=== PATIENT | female | born 1985 ===

== ENCOUNTER 2017-03-03 11:27 | Emergency (ER) | payer MEDICAID, OTHER ==
[2017-03-03 11:27] VITALS: BMI 20.3
[2017-03-03 11:30] VITALS: BP 109/77; PULSE 107; RESP 18; TEMP 97.4; O2SAT 98
--- NOTE | 2017-03-03 12:03 | C.PDOC ---
Time Seen by Provider: 03/03/17 11:43 Chief Complaint (Nursing): Lower Extremity Problem/Injury History Per: Patient Onset/Duration Of Symptoms: Days (chronic), Waxing/Waning Current Symptoms Are (Timing): Still Present Quality: "Pain" Severity: Moderate Associated Symptoms: Ankle/Leg Swelling (left) Additional History Per: Prior Records Past Medical History Reviewed: Historical Data, Nursing Documentation, Vital Signs Vital Signs: Last Vital Signs Temp 97.4 F L 03/03/17 11:30 Pulse 107 H 03/03/17 11:30 Resp 18 03/03/17 11:30 BP 109/77 03/03/17 11:30 Pulse Ox 98 03/03/17 11:30 - Medical History PMH: Arthritis, Asthma, Rheumatoid Arthritis - [facility] Procedures DETOXIFICATION SERVICES FOR SUBSTANCE ABUSE TREATMENT (10/01/16) INJECT/INFUSE NEC (07/09/14) NEBULIZER THERAPY (07/09/14) Family History: States: Unknown Family Hx - Social History Hx Tobacco Use: Yes Hx Alcohol Use: Yes Hx Substance Use: Yes (recovering Heroin addict) - Immunization History Hx Tetanus Toxoid Vaccination: Yes Hx Influenza Vaccination: No Hx Pneumococcal Vaccination: No Review Of Systems Except As Marked, All Systems Reviewed And Found Negative. Constitutional: Negative for: Fever, Weakness Cardiovascular: Negative for: Chest Pain Respiratory: Negative for: Shortness of Breath, Hemoptysis Gastrointestinal: Negative for: Vomiting, Abdominal Pain Musculoskeletal: Positive for: Other (Left ankle pain, chronic). Negative for: Neck Pain, Back Pain Neurological: Negative for: Weakness, Numbness, Seizures, Altered Mental Status Physical Exam - Physical Exam Appears: Non-toxic, No Acute Distress Skin: Normal Color, Warm, Dry Head: Atraumatic, Normacephalic Eye(s): bilateral: Normal Inspection, PERRL, EOMI Neck: Normal ROM, Supple Cardiovascular: Rhythm Regular Respiratory: Normal Breath Sounds, No Accessory Muscle Use Gastrointestinal/Abdominal: Soft, No Tenderness Back: No CVA Tenderness, No Vertebral Tenderness Extremity: Normal ROM, Tenderness (around left ankle area), Pedal Edema (left), No Calf Tenderness, Capillary Refill (wnl) Pulses: Left Dorsalis Pedis: Normal Neurological/Psych: Oriented x3, Normal Motor, Normal Sensation ED Course And Treatment O2 Sat by Pulse Oximetry: 98 Pulse Ox Interpretation: Normal Disposition Counseled Patient/Family Regarding: Diagnosis, Need For Followup, Rx Given - Disposition Referrals: Lionel Hyde MD [Staff Provider] - Disposition: HOME/ ROUTINE Disposition Time: 12:05 Condition: STABLE Additional Instructions: Follow up with your doctor for further evaluation and treatment. Return to the ER if you develop redness, fever, worsening of symptoms or if you have any other concerns. Prescriptions: Acetaminophen [Tylenol 325mg tab] 2 tab PO QID PRN #30 tab PRN Reason: Pain, Moderate (4-7) Pantoprazole Sodium [Protonix] 40 mg PO DAILY #14 ect predniSONE [predniSONE Tab] 2 tab PO DAILY #8 tab Instructions: Chronic Pain (ED) Forms: [facility] (Khmer) - Clinical Impression Clinical Impression: Chronic pain of left ankle
== END 2017-03-03 12:26 | disposition home or self-care (01) ==
LOC: C.ER 11:27
DX: M25.572 Pain in left ankle and joints of left foot (principal); G89.29 Other chronic pain

== ENCOUNTER 2017-03-30 00:50 | Emergency (ER) | payer MEDICAID ==
[2017-03-30 00:50] VITALS: BMI 20.3
[2017-03-30 00:55] VITALS: TEMP 97.4; O2SAT 100
--- NOTE | 2017-03-30 01:25 | C.PDOC ---
History Of Present Illness 32 year old female with a Hx of rheumatoid arthritis who presents to the ER with a complaint of left ankle pain for the past 2 days. Patient reports Hx of similar pain in the past; denies weakness or numbness of the left foot. Patient' s PMD is Dr. Méndez, last visit was approximately 3 months ago. Time Seen by Provider: 03/30/17 01:17 Chief Complaint (Nursing): Lower Extremity Problem/Injury History Per: Patient History/Exam Limitations: no limitations Onset/Duration Of Symptoms: Days Current Symptoms Are (Timing): Still Present Recent travel outside of the [place]: No Past Medical History Reviewed: Historical Data, Nursing Documentation, Vital Signs Vital Signs: Last Vital Signs Temp 97.4 F L 03/30/17 00:53 Pulse 70 03/30/17 02:58 Resp 17 03/30/17 02:58 BP 117/63 03/30/17 02:58 Pulse Ox 100 03/30/17 02:58 - Medical History PMH: Arthritis, Asthma, Rheumatoid Arthritis Surgical History: No Surg Hx - [facility] Procedures DETOXIFICATION SERVICES FOR SUBSTANCE ABUSE TREATMENT (10/01/16) INJECT/INFUSE NEC (07/09/14) NEBULIZER THERAPY (07/09/14) Family History: States: Unknown Family Hx - Social History Hx Tobacco Use: Yes Hx Alcohol Use: No Hx Substance Use: No - Immunization History Hx Tetanus Toxoid Vaccination: No Hx Influenza Vaccination: No Hx Pneumococcal Vaccination: No Review Of Systems Musculoskeletal: Positive for: Foot Pain Neurological: Negative for: Weakness, Numbness Physical Exam - Physical Exam Appears: Non-toxic, No Acute Distress Skin: Normal Color, Warm, Dry Head: Atraumatic, Normacephalic Extremity: Tenderness (On palpation to left ankle), No Deformity, Swelling ( Left ankle), No Other (Erythema) Pulses: Left Dorsalis Pedis: Normal, Right Dorsalis Pedis: Normal Neurological/Psych: Oriented x3, Normal Speech, Normal Cognition, Normal Motor, Normal Sensation ED Course And Treatment O2 Sat by Pulse Oximetry: 100 (Room air) Pulse Ox Interpretation: Normal Progress Note: Decadron and toradol administered. On reevaluation, patient's pain has improved, will discharge home with Rx and instruct to follow up with PMD. Disposition - Disposition Referrals: Jovany Méndez MD [Staff Provider] - Disposition: HOME/ ROUTINE Disposition Time: 02:48 Condition: STABLE Additional Instructions: Follow up with your PMD within 1-2 days. Return to Ed if feel worse. Prescriptions: Naproxen [Naprosyn] 1 tab PO BID PRN #25 tab PRN Reason: Pain Famotidine [Pepcid] 20 mg PO BID #20 tab oxyCODONE/Acetaminophen [Percocet 5/325 mg Tab] 1 tab PO QID PRN #14 tab PRN Reason: Pain predniSONE [predniSONE Tab] 2 tab PO DAILY #8 tab Instructions: Rheumatoid Arthritis (ED) Forms: [employer] (Austrian) - Clinical Impression Clinical Impression: Chronic pain of left ankle - Scribe Statement The provider has reviewed the documentation as recorded by the Scribkerry Vincent All medical record entries made by the Michealibkerry were at my direction and personally dictated by me. I have reviewed the chart and agree that the record accurately reflects my personal performance of the history, physical exam, medical decision making, and the department course for this patient. I have also personally directed, reviewed, and agree with the discharge instructions and disposition.
[2017-03-30] MEDS ORDERED: Dexamethasone 4 mg/1 ml IM STA (01:42)
[2017-03-30] MEDS ORDERED: Dexamethasone 4 mg/1 ml ONE (01:46)
[2017-03-30 03:01] VITALS: BP 117/63; PULSE 70; RESP 17
== END 2017-03-30 02:57 | disposition home or self-care (01) ==
LOC: C.ER 00:50
DX: G89.29 Other chronic pain (principal); M25.572 Pain in left ankle and joints of left foot
CPT/HCPCS: 96372; 99284; J1100; J1885

== ENCOUNTER 2017-07-19 16:14 | Emergency (ER) | payer MEDICAID, OTHER ==
[2017-07-19 16:14] VITALS: BMI 20.3
[2017-07-19 16:19] VITALS: BP 119/82; RESP 18; TEMP 98.4; O2SAT 98
--- NOTE | 2017-07-19 16:36 | C.PDOC ---
History Of Present Illness Carli Shaikh is a 32 y/o female who presents to the ER requesting detox s/p substance abuse. States she has been sniffing heroin and using crack. She offers no other physical complaints. Time Seen by Provider: 07/19/17 16:23 Chief Complaint (Nursing): Substance Abuse History Per: Patient History/Exam Limitations: no limitations Current Symptoms Are (Timing): Still Present Modifying Factor(s): Narcotics, Crack Past Medical History Reviewed: Historical Data, Nursing Documentation, Vital Signs Vital Signs: Last Vital Signs Temp 98.4 F 07/19/17 16:44 Pulse 99 H 07/19/17 16:44 Resp 18 07/19/17 16:44 BP 119/82 07/19/17 16:44 Pulse Ox 98 07/19/17 20:21 - Medical History PMH: Arthritis, Asthma, Rheumatoid Arthritis Denies: HIV, HTN, Seizures, Sexually Transmitted Disease - [facility] Procedures DETOXIFICATION SERVICES FOR SUBSTANCE ABUSE TREATMENT (10/01/16) INJECT/INFUSE NEC (07/09/14) NEBULIZER THERAPY (07/09/14) Family History: States: Unknown Family Hx - Social History Hx Tobacco Use: Yes Hx Alcohol Use: No Hx Substance Use: Yes (heroin and crack) - Immunization History Hx Tetanus Toxoid Vaccination: No Hx Influenza Vaccination: No Hx Pneumococcal Vaccination: No Review Of Systems Constitutional: Negative for: Fever, Other (pain) Psych: Positive for: Other (substance use) Physical Exam - Physical Exam Appears: Non-toxic, No Acute Distress Skin: Normal Color, Warm, Dry Head: Atraumatic, Normacephalic Eye(s): bilateral: Normal Inspection, PERRL, EOMI Neck: Normal ROM, Supple Cardiovascular: Rhythm Regular Respiratory: Normal Breath Sounds, No Accessory Muscle Use, No Wheezing Gastrointestinal/Abdominal: Soft, No Tenderness, No Distention Extremity: Normal ROM, No Tenderness Neurological/Psych: Oriented x3, Normal Speech, Normal Cognition ED Course And Treatment O2 Sat by Pulse Oximetry: 98 (Ra) Pulse Ox Interpretation: Normal Medical Decision Making Medical Decision Making: Impression: 32 y/o requesting detox Discussed case w/ relay worker. No detox beds available. Patient is medically stable. Will d/c with information regarding detox programs. Disposition Counseled Patient/Family Regarding: Need For Followup - Disposition Disposition: HOME/ ROUTINE Disposition Time: 16:35 Condition: STABLE Additional Instructions: Please contact detox programs on sheet given to you to find soonest program available. Return to ER for any worsening symptoms. Instructions: Opioid Dependence (ED) Forms: [facility] ([place] Islander), General Discharge Instructions - Clinical Impression Clinical Impression: Drug dependence - PA / EMBALMER APPRENTICE / Resident Statement MD/DO has reviewed & agrees with the documentation as recorded. - Scribe Statement The provider has reviewed the documentation as recorded by the Scribe (Jackie Puente) All medical record entries made by the Scribe were at my direction and personally dictated by me. I have reviewed the chart and agree that the record accurately reflects my personal performance of the history, physical exam, medical decision making, and the department course for this patient. I have also personally directed, reviewed, and agree with the discharge instructions and disposition.
[2017-07-19 16:56] VITALS: PULSE 99
== END 2017-07-19 16:44 | disposition home or self-care (01) ==
LOC: C.ER 16:14
DX: F19.20 Other psychoactive substance dependence, uncomplicated (principal)

== ENCOUNTER 2017-07-20 14:03 | Inpatient (IN) | payer MEDICAID ==
[2017-07-20 14:03] VITALS: BMI 20.3
[2017-07-20 15:00] LABS: BASO # 0.1 K/uL (0.0-0.2); BASO % 0.5 % (0.0-2.0); EOS # 0.2 K/uL (0.0-0.7); EOS % 1.4 % (0.0-4.0); HEMATOCRIT 42.5 % (34.0-47.0); LYMPH # 1.7 K/uL (1.0-4.3); LYMPH % 14.2 % (20.0-40.0); MEAN CELL VOLUME 92.6 fL (81.0-99.0); MEAN CORPUSCULAR HGB CONC 33.5 g/dL (33.0-37.0); MEAN PLATELET VOLUME 9.2 fL (7.2-11.7); MONO # 0.8 K/uL (0.0-0.8); MONO % 6.5 % (0.0-10.0); RED CELL DISTRIBUTION WIDTH 13.6 % (11.5-14.5)
[2017-07-20 15:26] LABS: ALCOHOL SERUM < 10 mg/dl (0-10); ALKALINE PHOSPHATASE 73 U/L (38-126); ALT/SGPT 41 U/L (9-52); AST/SGOT 17 U/L (14-36); BILIRUBIN,TOTAL 0.3 mg/dL (0.2-1.3); BLOOD UREA NITROGEN 14 mg/dL (7-17); CALCIUM 8.4 mg/dl (8.6-10.4); CARBON DIOXIDE 29 mmol/L (22-30); CHLORIDE 106 mmol/L (98-107); GFR AFRICAN-AMERICAN > 60; GLUCOSE,RANDOM 129 mg/dL (65-105); SODIUM 139 mmol/L (132-148); TOTAL PROTEIN 7.6 g/dL (6.3-8.3)
[2017-07-20 15:52] LABS: RBC URINE 34 /hpf (0-3); URINE BILIRUBIN NEGATIVE (NEGATIVE); URINE BLOOD 3+ (NEGATIVE); URINE COLOR Yellow (YELLOW); URINE GLUCOSE (UA) NORMAL (Normal); URINE KETONE NEGATIVE (NEGATIVE); URINE PROTEIN NEGATIVE (NEGATIVE); URINE UROBILINOGEN NORMAL mg/dL (0.2-1.0); WBC URINE 15 /hpf (0-5)
[2017-07-20 15:53] LABS: POTASSIUM 3.8 mmol/L (3.6-5.2)
[2017-07-20 15:53] LABS: URINE LEUKOCYTE ESTERASE 1+ Leu/uL (Negative)
--- NOTE | 2017-07-20 16:02 | C.PDOC ---
History Of Present Illness 32yo female, pre-cleared for detox for heroin, cocaine and alcohol abuse. Patient states she last used heroin and cocaine early this morning. She states last alcohol use was 2 days ago. She has no medical complaints. Time Seen by Provider: 07/20/17 15:06 Chief Complaint (Nursing): Substance Abuse History Per: Patient History/Exam Limitations: no limitations Onset/Duration Of Symptoms: Hrs Current Symptoms Are (Timing): Still Present Past Medical History Reviewed: Historical Data, Nursing Documentation, Vital Signs Vital Signs: Last Vital Signs Temp 98.6 F 07/20/17 17:49 Pulse 78 07/20/17 17:49 Resp 18 07/20/17 17:49 BP 112/72 07/20/17 17:49 Pulse Ox 99 07/20/17 17:49 - Medical History PMH: Arthritis, Asthma, Depression, Rheumatoid Arthritis Denies: HIV, HTN, Seizures, Sexually Transmitted Disease Surgical History: No Surg Hx - [facility] Procedures DETOXIFICATION SERVICES FOR SUBSTANCE ABUSE TREATMENT (10/01/16) INJECT/INFUSE NEC (07/09/14) NEBULIZER THERAPY (07/09/14) Family History: States: Unknown Family Hx - Social History Hx Tobacco Use: Yes Hx Alcohol Use: No Hx Substance Use: Yes (heroin and crack) - Immunization History Hx Tetanus Toxoid Vaccination: No Hx Influenza Vaccination: No Hx Pneumococcal Vaccination: No Review Of Systems Except As Marked, All Systems Reviewed And Found Negative. Cardiovascular: Negative for: Chest Pain Respiratory: Negative for: Shortness of Breath Physical Exam - Physical Exam Appears: No Acute Distress Skin: Normal Color Head: Atraumatic, Normacephalic Eye(s): bilateral: Normal Inspection Neck: Supple Cardiovascular: Rhythm Regular Respiratory: Normal Breath Sounds Gastrointestinal/Abdominal: Soft, No Tenderness Extremity: Normal ROM, No Deformity Neurological/Psych: Oriented x3, Normal Speech, Normal Cognition ED Course And Treatment - Laboratory Results Result Diagrams: 07/20/17 14:57 07/20/17 14:57 O2 Sat by Pulse Oximetry: 98 (RA) Pulse Ox Interpretation: Normal Disposition - Disposition Disposition Time: 16:30 Condition: STABLE Forms: [employer] [facility] (Algerian) - Clinical Impression Clinical Impression: Drug abuse - Scribe Statement The provider has reviewed the documentation as recorded by the Marisela Hernandez Provider Attestation: All medical record entries made by the Scribe were at my direction and personally dictated by me. I have reviewed the chart and agree that the record accurately reflects my personal performance of the history, physical exam, medical decision making, and the department course for this patient. I have also personally directed, reviewed, and agree with the discharge instructions and disposition.
--- NOTE | 2017-07-20 18:59 | PCM.BM ---
<LaurelKandace - Last Filed: 07/20/17 19:50> Treatment Plan Problems - Problems identified on initial assessmt Potential for opiate withdrawal Date Initiated: 07/20/17 Time Initiated: 18:58 Assessment reference: NA Status: Active Priority: 1 Potential for alcohol withdrawal Date Initiated: 07/20/17 Time Initiated: 19:50 Assessment reference: NA Status: Active Priority: 2 Treatment assets and liabiliti Patient Assests: ADL independent, negotiates basic needs, cognitively intact Patient Liabilities: substance abuse, other (homeless) - Milieu Protocol Maintain good personal hygiene: daily Encourage regular showers, daily Remind patient to perform daily oral care, daily Assist patient to perform ADL's Conduct patient checks and document Observation sheet: Q15 minutes Maintain personal safety: every shift Educate patient to report safety concerns to staff, every shift Monitor environment for contraband/sharps Medication safety: Monitor for expected outcome, potential side effects: every shift, Assess barriers to learning: every shift, Assess readiness for medication education: every shift <Yissel De La Vega - Last Filed: 07/21/17 13:17> - Diagnosis (1) Opioid use disorder, severe, dependence Status: Acute Interventions: 07/21/17 13:17 * Assess 7x/week regarding severity of withdrawal * Educate regarding risks, benefits, side effects and alternatives of medications * Use Motivational Interviewing for abstinence * Use CBT for relapse prevention * Medication management for withdrawal symptoms * Encourage medication assisted treatment * (2) Alcohol abuse Status: Acute Interventions: 07/21/17 13:17 * Assess 7x/week regarding severity of withdrawal * Educate regarding risks, benefits, side effects and alternatives of medications * Use Motivational Interviewing for abstinence * Use CBT for relapse prevention * Medication management for withdrawal symptoms * Encourage medication assisted treatment * <Carli Gray - Last Filed: 07/22/17 10:12> Family Contact Family involvement: Famliy/SO not involved Family contact: Patient agrees to contact - Goals for Treatment Patient goals for treatment: Complete detox and apply for [facility]. Discharge/Continuing Care - Education Needs Education Needs: Patient Medication, Patient Diagnosis/Disease Process, Patient Coping Skills, Patient Anger Management skills, Patient Placement options, Patient Community resources - Discharge Discharge Criteria: No longer exhibiting s/s of withdrawal, Reduction of target symptoms Discharge to:: Substance Abuse Rehab - Treatment Team Participation Patient/Family/SO Statement: 07/22/17 10:11 "I gotta do rehab. My family needs me to do this..." Discussed with Family/SO: No Was Patient/Family/SO present at Treatment Team Meeting: Yes
[2017-07-20] MEDS ORDERED: Buprenorphine Hydrochloride 2 mg SL ONE ×2 (19:45→21:26)
[2017-07-21] MEDS: Multiple Vitamins Tab PO SCH (09:53)
[2017-07-21] MEDS: Buprenorphine Hydrochloride 2 mg SL SCH (10:17)
--- NOTE | 2017-07-21 15:26 | PCM.PSYCH ---
Initial Psychiatric Evaluation - Initial Psychiatric Evaluation Chief Complaint (in patient's own words): " I need help"---> Heroin detox History of Present Illness and Precipitating Events: The patient is seen, chart reviewed and case discussed. 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 She uses 12-15 bags of heroin intranasally daily for about 2 years. She started smoking crack for the past 1.5 months She drinks a pint of vodka daily for the past 2 months She smokes 10 cigarettes daily Her first detox was in October 2016. No rehabs or MMTP/SBX Drinks socially, denies all drugs She states that she buys Xanax off the street Past psych hx: Depression and anxiety Family psych hx: Uncle uses heroin Medical hx: RA and asthma Current Medications: Active Medications Generic Name Dose Route Start Last Admin Trade Name Freq PRN Reason Stop Dose Admin Albuterol 1 puff 07/21/17 16:00 Ventolin Hfa 90 Mcg/Actuation (8 G) INH RQ4 PRN Shortness of Breath Buprenorphine HCl 8 mg 07/21/17 10:00 07/21/17 10:17 Subutex SL 07/25/17 09:59 8 mg DAILY LIZET Administration Taper Chlordiazepoxide 25 mg 07/20/17 22:15 07/21/17 12:25 Librium PO 07/25/17 19:41 25 mg Q4H LIZET Administration Taper Chlordiazepoxide 25 mg 07/21/17 09:49 07/21/17 10:02 Librium PO 25 mg Q4H PRN Administration Alcohol Withdrawal Clonidine HCl 0.1 mg 07/20/17 18:59 Catapres PO Q8 PRN COWS Score More or Equal to 5 Folic Acid 1 mg 07/21/17 10:00 07/21/17 09:53 Folic Acid PO 1 mg DAILY LIZET Administration Gabapentin 300 mg 07/21/17 10:15 07/21/17 10:18 Neurontin PO 300 mg BID LIZET Administration Ibuprofen 400 mg 07/20/17 19:00 Motrin Tab PO Q6H PRN Pain, moderate (4-7) Loperamide HCl 2 mg 12/18/17 18:59 Imodium PO Q8 PRN Diarrhea Multivitamins 1 tab 07/21/17 10:00 07/21/17 09:53 Hexavitamin PO 1 tab DAILY LIZET Administration Ondansetron HCl 4 mg 07/20/17 18:59 Zofran Tab PO Q8 PRN Nausea/Vomiting Thiamine HCl 100 mg 07/21/17 10:00 07/21/17 09:53 Vitamin B1 Tab PO 100 mg DAILY LIZET Administration Trazodone HCl 50 mg 07/20/17 19:42 07/20/17 21:02 Desyrel PO 50 mg HS PRN Administration Insomnia Past Psychiatric History - Past Psychiatric History Pertinent Medical Hx (Current Medical&Sleep Prob, Allergies): Allergies Allergy/AdvReac Type Severity Reaction Status Date / Time No Known Allergies Allergy Verified 07/20/17 14:16 No Known Home Med 07/19/17 Review of Systems - Neurological Neurological: UNREMARKABLE - Psychiatric Psychiatric: Anxiety, Depression. absent: Auditory Hallucinations, Irritability , Paranoia, Visual Hallucinations, Tactile Hallucinations Mental Status Examination - Affect Affect: Depressed - Motor Activity Motor Activity: Calm - Reliability in Providing Information Reliability in Providing Information: Good - Speech Speech: Organized - Mood Mood: Depressed, Anxious - Formal Thought Process Formal Thought Process: No Impairment - Obsessions/Compulsions Obsessions: No Compulsions: No - Cognitive Functions Orientation: Person, Place, Situation, Time Sensorium: Alert Attention/Concentration: Attentive Estimate of Intelligence: Average Judgement: Intact, as evidence by: Insight regarding need for hospitalization Memory: Recent intact, as evidence by: Ability to recall events of the day - Strength & Assets Inventory Strength & Assets Inventory: Cooperative DSM 5 DX - DSM 5 DSM 5 Diagnosis: Opioid use d/o, severe Cocaine use d/o, severe Xanax use d/o Alcohol use d/o - Recommended/Plan of Treatment Treatment Recommendations and Plan of Treatment: Subutex detox Librium taper Gabapentin 300mg PO BID Trazadone 50mg PO HS PRN As needed meds Support and psychoed NH and CBT Attend groups and actovoteos Refer to rehab or IOP Projected ELOS: 4 Prognosis: Good with treatment - Smoking Cessation Smoking Cessation Initiated: No
[2017-07-21] MEDS ORDERED: Albuterol HFA 90 mcg/actuation (8 g) INH PRN (16:00)
[2017-07-22] MEDS: Multiple Vitamins Tab PO SCH (09:46)
[2017-07-22] MEDS: Buprenorphine Hydrochloride 2 mg SL SCH (09:46)
--- NOTE | 2017-07-22 11:39 | PCM.PYCHPN ---
Psychiatric Progress Note - Psychiatric Progress Note Patient Chief Complaint: " My mind is racing and I am anxious" Problems Identified/Issues Discussed: The pt is seen, chart reviewed, case discussed with staff. The pt is compliant with medications and reports no side-effects. Symptoms of withdrawal are improving but needs more time to stabilize, patient states that she still very anxious After care discussed, support and psychoeducation given. Medication Change: Yes (Detoxc changes daily ) Medical Record Reviewed: Yes Mental Status Examination - Cognitive Function Orientation: Person, Place, Situation, Time Memory: Intact, Impaired Attention: WNL Concentration: WNL Association: WNL Fund of Knowledge: WNL - Mood Mood: Depressed, Anxious - Affect Affect: Depressed - Formal Thought Process Formal Thought Process: No Impairment - Suicidal Ideation Suicidal Ideation: No - Homicidal Ideation Homicidal Ideation: No Goal/Treatment Plan - Goal/Treatment Plan Progress Toward Problem(s) and Goals/Treatment Plan: Subutex detox Librium taper Gabapentin 300mg PO BID Seroquel 100mg PO HS As needed meds Support and psychoeducation given MO and CBT Attend groups and activities Refer to rehab or IOP Smoking cessation, Nicotine patch Patient plans to go to a short-term outpatient upon discharge - Smoking Cessation Smoking Cessation Initiated: Yes
--- NOTE | 2017-07-23 08:55 | PCM.PYCHPN ---
Psychiatric Progress Note - Psychiatric Progress Note Patient seen today, length of contact: 15 minutes Patient Chief Complaint: " I slept well last night but still experiencing some anxiety" Problems Identified/Issues Discussed: The pt is seen, chart reviewed, case discussed with staff. The pt is compliant with medications and reports no side-effects. Symptoms of withdrawal are improving but needs more time to stabilize, patient states that she slept well last night but still feels moderately anxious After care discussed, support and psychoeducation given. Medication Change: Yes (Detox changes daily , Gabapentin increased to 400mg, and added Atarax 50mg ) Medical Record Reviewed: Yes Mental Status Examination - Cognitive Function Orientation: Person, Place, Situation, Time Memory: Intact Attention: WNL Concentration: WNL Association: WNL Fund of Knowledge: WNL - Mood Mood: Anxious - Affect Affect: Other (Normal ) - Speech Speech: Appropriate - Formal Thought Process Formal Thought Process: No Impairment - Suicidal Ideation Suicidal Ideation: No - Homicidal Ideation Homicidal Ideation: No Goal/Treatment Plan - Goal/Treatment Plan Need for Continued Stay: Discharge may exacerbated symptoms Progress Toward Problem(s) and Goals/Treatment Plan: Subutex detox Librium taper Gabapentin 300mg PO BID---Increased to 400mg PO TID Atarax 50mg PO Q6H PRN Seroquel 100mg PO HS As needed meds Support and psychoeducation MA and CBT Attend groups and activities Refer to rehab or IOP, possibly [facility] in [place] Smoking cessation, Nicotine patch - Smoking Cessation Smoking Cessation Initiated: Yes
[2017-07-23] MEDS: Multiple Vitamins Tab PO SCH (09:33)
[2017-07-23] MEDS: Buprenorphine Hydrochloride 2 mg SL SCH (09:33)
--- NOTE | 2017-07-23 11:34 | VASCLAB ---
PROCEDURE: Lower Extremity Venous Duplex Exam. HISTORY: Bilateral LE edema PRIORS: None. TECHNIQUE: Bilateral common femoral, femoral, popliteal and posterior tibial, peroneal and great saphenous veins were evaluated. Flow was assessed with color Doppler, compressibility, assessment of phasic flow and augmentation response. Report prepared by SILVESTRE Lagunas FINDINGS: RIGHT: 1. Common Femoral Vein: 1.1. Compressibility - Fully compressible: Thrombus - None : Flow - Phasic: Augmentation -Normal: Reflux - None. 2. Femoral Vein: 2.1. Compressibility - Fully compressible: Thrombus - None : Flow - Phasic: Augmentation -Normal: Reflux - None. 3. Popliteal Vein: 3.1. Compressibility - Fully compressible: Thrombus - None : Flow - Phasic: Augmentation -Normal: Reflux - None. 4. Posterior Tibial Vein: 4.1. Compressibility - Fully compressible: Thrombus - None: Flow - Phasic: Augmentation -Normal: Reflux - None. 5. Peroneal Vein: 5.1. Compressibility - Fully compressible: Thrombus - None: Flow - Phasic: Augmentation -Normal: Reflux - None. 6. Great Saphenous Vein: 6.1. Compressibility - Fully compressible: Thrombus - None: Flow - Phasic: Augmentation - Normal: Reflux - None. LEFT: 1. Common Femoral Vein: 1.1. Compressibility - Fully compressible: Thrombus - None: Flow - Phasic: Augmentation -Normal: Reflux - None. 2. Femoral Vein: 2.1. Compressibility - Fully compressible: Thrombus - None: Flow - Phasic: Augmentation -Normal: Reflux - None. 3. Popliteal Vein: 3.1. Compressibility - Fully compressible: Thrombus - None : Flow - Phasic: Augmentation -Normal: Reflux - None. 4. Posterior Tibial Vein: 4.1. Compressibility - Fully compressible: Thrombus - None: Flow - Phasic: Augmentation -Normal: Reflux - None. 5. Peroneal Vein: 5.1. Compressibility - Fully compressible: Thrombus - None: Flow - Phasic: Augmentation -Normal: Reflux - None. 6. Great Saphenous Vein: 6.1. Compressibility - Fully compressible: Thrombus - None: Flow - Phasic: Augmentation - Normal: Reflux - None. OTHER FINDINGS: Right: None significant. Left: None significant. IMPRESSION: Right: No evidence of deep or superficial vein thrombosis of the right lower extremity. Normal valve function noted of the right side. Left: No evidence of deep or superficial vein thrombosis of the left lower extremity. Normal valve function noted of the left side.
[2017-07-23 14:08] VITALS: RESP 18
[2017-07-23] MEDS ORDERED: Aluminum Hydroxide/Magnesium Hydroxide Susp (30 mL) PO PRN (17:25)
[2017-07-24 09:31] VITALS: BP 107/68; PULSE 88; TEMP 98.1; O2SAT 99
[2017-07-24] MEDS: Buprenorphine Hydrochloride 2 mg SL SCH (09:34)
[2017-07-24] MEDS: Multiple Vitamins Tab PO SCH (09:34)
--- NOTE | 2017-07-24 11:24 | PCM.PYCHDC ---
Mental Status Examination - Mental Status Examination Orientation: Person, Place, Situation, Time Memory: Intact Mood: Neutral Affect: Other (Normal, appropriate ) Speech: Appropriate Attention: WNL Concentration: WNL Formal Thought Process: No Impairment Suicidal Ideation: No Current Homicidal Ideation?: No Discharge Summary - Discharge Note Reason for Hospitalization: Heroin Detox Consultations:: List each consultation separately and include: 1. Reason for request. 2. Findings. 3. Follow-up Summary of Hospital Course include:: 1. Description of specific treatment plan utilized for patients during their course of treatmen. 2. Summarize the time- course for resolution of acute symptoms and/or regressed behaviors. 3. Describe issues identified and worked on during hospitalization. 4. Describe medication utilized. 5. Describe medical problems identified and treated. 6. Reassessment of suicide risk Summary of Hospital Course: The pt was admitted and started on treatment with psychotherapy, support, psychoeducation and medications. RI and CBT used. The pt attended groups and activities, as well as milieu therapy. All the risks and benefits of medications are discussed and the patient understood and agreed. The pt improved with the treatments provided. After care discussed with the patient, she is going to [facility] - Final Diagnosis (DSM 5) Condition upon Discharge: IMPROVED Disposition: HOME/ ROUTINE Follow-up Treatment Plan: Continue below medications after discharge Follow after care plan as discussed Use relapse prevention skills Return to ER or call 911 if suicidal, homicidal or symptoms relapse Stay away from stress, alcohol and drugs See primary doctor regularly and get labs Refer to rehab or [facility], possibly [facility] Prescriptions/Medication Reconciliation: Albuterol HFA [Ventolin HFA 90 mcg/actuation (8 g)] 1 puff INH RQ4 PRN #1 inhaler PRN Reason: Shortness Of Breath Celecoxib [celeBREX] 100 mg PO BID #60 cap Gabapentin [Neurontin] 400 mg PO TID #90 cap hydrOXYzine HCl [Atarax] 50 mg PO BID PRN #60 tab PRN Reason: Anxiety traZODone [Desyrel] 100 mg PO HS PRN #30 tab PRN Reason: Insomnia - Smoking Cessation Smoking Cessation Medication prescribed: No - Antipsychotic Medications Pt discharged on 2 or more routine antipsychotic medications: No
== END 2017-07-24 10:00 | disposition home or self-care (01) | DRG 745 ==
LOC: C.ER 14:03 → C.7D 18:47
PROVIDERS: ADMIT Psychiatry & Neurology Psychiatry; ATTEND Psychiatry & Neurology Psychiatry
DX: F11.20 Opioid dependence, uncomplicated (principal); F14.20 Cocaine dependence, uncomplicated; F10.20 Alcohol dependence, uncomplicated; F19.20 Other psychoactive substance dependence, uncomplicated